=== PATIENT | female | born 1990 | race Caucasian/White ===

== ENCOUNTER 2018-05-26 07:24 | Inpatient (IN) | payer BC ==
[2018-05-26 07:58] LABS: APPEARANCE,URINE CLOUDY; BILIRUBIN,URINE NEGATIVE (NEGATIVE); GLUCOSE, URINE NEGATIVE (NEGATIVE); KETONES,URINE NEGATIVE (NEGATIVE); LEUKOCYTE ESTERASE,URINE LARGE (NEGATIVE); NITRITE,URINE NEGATIVE (NEGATIVE); PROTEIN,URINE NEGATIVE (NEGATIVE); URINE SPECIFIC GRAVITY 1.011; UROBILINOGEN,URINE NEGATIVE mg/dL (<2.0)
[2018-05-26 07:59] LABS: COLOR,URINE YELLOW
[2018-05-26 08:19] LABS: URINE AMPHETAMINES SCREEN NEGATIVE; URINE BARBITURATES SCREEN NEGATIVE; URINE BENZODIAZEPINES SCREEN NEGATIVE; URINE COCAINE SCREEN NEGATIVE; URINE MARIJUANA (THC) SCREEN NEGATIVE; URINE METHADONE SCREEN NEGATIVE; URINE PHENCYCLIDINE SCREEN NEGATIVE
[2018-05-26] MEDS ORDERED: RINGERS SOLUTION,LACTATED 1,000 ML IV ONE (10:15)
--- NOTE | 2018-05-26 10:34 | Admission Physical ---
Datetime Report Generated by CPN: 05/26/2018 10:33 CURRENT ADMISSION Chief Complaint: Uterine Contractions Indication for Induction: Not Applicable Admit Impression : Postterm, Intrauterine Admit Plan: Admit to Unit; Initiate Labor Protocol ALLERGIES Medication Allergies: No Medication Allergies: No Known Allergies (05/26/2018) Latex: No Latex Allergies OBSTETRICAL HISTORY EDC: 05/23/2018 00:00 : 2 Para: 0 Livin Gestational Diabetes: No Rh Sensitization: No Incompetent Cervix: No NICHOLAS: No Infertility: No ART Treatment: No Uterine Anomaly: No IUGR: No Hx Previous C/S: No Macrosomia: No Hx Loss/Stillborn: No PIH: No Hx : No Placenta Previa/Abruption: No Depression/PP Depression: No PTL/PROM: No Post Hemorrhage: No Current Procedures: Ultrasound; NST Obstetrical History Comments: G1: EAB G2: current SEE RECORDS Alcohol: No Marijuana : No Cocaine: No Other Illicit Drugs: No Cigarettes: Never Smoker. [id number] MEDICAL HISTORY Diabetes: No Blood Transfusion: No Pulmonary Disease (Asthma, TB): No Breast Disease: No Hypertension: No Cooker Casing Surgery: No Heart Disease: No Hosp/Surgery: No Autoimmune Disorder: No Anesthetic Complications: No Kidney Disease: No Abnormal Pap Smear: No Neuro/Epilepsy: No Psychiatric Disorders: No Other Medical Diseases: No Hepatitis/Liver Disease: No Significant Family History: No Varicosities/Phlebitis: No Trauma/Violence : No Thyroid Dysfunction: No PHYSICAL EXAM General: Normal HEENT: Deferred Neurologic: Normal Thyroid: Deferred Heart: Normal Lungs: Normal Breast: Deferred Back: Normal Abdomen: Normal Genitourinary Exam: Normal Extremities: Normal DTRs: Normal Pelvic Type: Adequate Vital Signs: Reviewed; Within Normal Limits VAGINAL EXAM Dilatation: 6 Effacement: 100 Station: -1 Contraction Comments: 3-4.5 MEMBRANES Membranes: Intact FETUS A EGA: 40.3 Monitoring: External US FHR- Baseline: 125 Variability: Moderate 6-25bpm Accelerations: 15X15 Decelerations: None FHR Category: Category I Presentation: Vertex Admit Comment: 27yo at 40w3d into L_D this am with contractions that started at 0245am and cervical change after walking x1hr. Denies LOF or other concerns. A pos, RI, GBS neg with not significant medical or obstetrical hx except for EAB with first . Pt. desires pain medication at this time and would like epidural at some point. Anticipate delivery. PLANS FOR LABOR AND DELIVERY Pain Management: Epidural Feeding Preference: Breast Benefit of Breast Feed Discussed: Yes Circumcision: Yes INFORMED CONSENT Assignment: Ruslan Hurley MD Signature: with User ID: [email or web address] : with User ID: [email or web address]
[2018-05-26] MEDS ORDERED: MISOPROSTOL 0.2 MG TABLET ONE (10:50)
[2018-05-26] MEDS ORDERED: LIDOCAINE 1% INJ-PF (10 MG/ML) 30 ML SDV ONE (10:51)
[2018-05-26] MEDS ORDERED: EPHEDRINE SULFATE INJ 50 MG/1 ML AMPULE ONE (10:51)
[2018-05-26] MEDS ORDERED: OXYTOCIN/NORMAL SALINE 20 UNIT/1,000 ML RTUINJ ONE (10:51)
[2018-05-26] MEDS ORDERED: FENTANYL/BUPIVACAINE/NS/PF 300 MCG/150 ML RTUINJ EPI ONE (10:51)
[2018-05-26] MEDS ORDERED: BUPIVACAINE HCL 0.25 % INJ/PF (2.5 MG/1 ML) 30 ML VIAL ONE (10:52)
[2018-05-26 11:05] LABS: ABSOLUTE LYMPHOCYTES (AUTO) 1.2 10^3/uL (0.5-4.7); ABSOLUTE MONOCYTES (AUTO) 0.3 10^3/uL (0.1-1.4); ABSOLUTE NEUT (AUTO) 10.3 10^3/uL (1.7-8.2); BASOPHILS % (AUTO) 0.3 % (0-2); EOSINOPHILS % (AUTO) 0.1 % (0-6); HEMATOCRIT 36.7 % (36.0-47.0); HEMOGLOBIN 12.6 g/dL (12.0-15.5); LYMPHOCYTES % (AUTO) 10.2 % (13-45); MEAN CORPUSCULAR HEMOGLOBIN 31.8 pg (27.0-33.4); MEAN CORPUSCULAR HGB CONC 34.5 g/dL (32.0-36.0); MEAN CORPUSCULAR VOLUME 92 fl (80-97); MONOCYTES % (AUTO) 2.7 % (3-13); PLATELET COUNT 215 10^3/uL (150-450); RED BLOOD COUNT 3.98 10^6/uL (3.72-5.28); RED CELL DISTRIBUTION WIDTH 12.5 % (11.5-14.0); SEGMENTED NEUTROPHILS % (AUTO) 86.7 % (42-78); TOTAL CELLS COUNTED % (AUTO) 100 %; WHITE BLOOD COUNT 11.9 10^3/uL (4.0-10.5)
--- NOTE | 2018-05-26 11:31 | L&D Progress Notes ---
PROGRESS NOTES Datetime Report Generated by CPN: 05/26/2018 11:30 PROGRESS NOTE Impression: Normal Progression of Labor Procedures: Sterile Vag Exam Plan: Continue Present Management Informed Consent Obtained: Vaginal Delivery; Risks, Benefits and Alternatives Discussed Vital Signs : Reviewed; Within Normal Limits Comment: S: pt. with urge to push, desires epidural O: vss, cervix as stated. contractions q3-4min, Cat I tracing A: IUP @ 40w3d in labor, stable P: call placed to anesthesia for epidural placement, anticipate vaginal delivery VAGINAL EXAM Dilatation: 6 Effacement: 100 Station: -1 Contractions: 3-4.5 MEMBRANES Membranes: Intact FETUS A Monitoring: External US FHR Category: Category I Presentation: Vertex SIGNATURE SIGNATURE: [id number] SIGNATURE: [id number] Assignment: Ruslan Hurley MD Signature: with User ID: [email or web address] : with User ID: [email or web address]
[2018-05-26] MEDS ORDERED: OXYTOCIN/NORMAL SALINE 20 UNIT/1,000 ML RTUINJ IV PRN ×2 (14:02→17:17)
--- NOTE | 2018-05-26 15:37 | L&D Progress Notes ---
PROGRESS NOTES Datetime Report Generated by CPN: 05/26/2018 15:36 PROGRESS NOTE Impression: Normal Progression of Labor Procedures: Artificial ROM; Sterile Vag Exam Plan: Continue Present Management Informed Consent Obtained: Vaginal Delivery; Risks, Benefits and Alternatives Discussed Vital Signs : Reviewed; Within Normal Limits Comment: S: pt. reporting increased pressure with contractions O:VSS, pit @ 2mu/min, cervix as stated A: IUP @ 40w3d in labor-stable, AROM-small amount of clear fluid P: Continue IOL and position changes. MEMBRANES Membranes: Ruptured Amniotic Fluid Color: Clear FETUS A Monitoring: External US Variability: Moderate 6-25bpm Accelerations: 15X15 Decelerations: Late FHR Comments: occasional late resolved with position change FETUS C SIGNATURE: [id number] Assignment: Ruslan Hurley MD Signature: with User ID: [email or web address] : with User ID: [email or web address]
[2018-05-26] MEDS ORDERED: MEASLES,MUMPS&RUBELLA VACC/PF 0.5 ML VIAL SUBCUT PRN (17:17)
[2018-05-26] MEDS ORDERED: ZOLPIDEM TARTRATE 5 MG TABLET PO PRN (17:17)
[2018-05-26] MEDS ORDERED: PSEUDOEPHEDRINE HCL 30 MG TABLET PO PRN (17:17)
[2018-05-26] MEDS ORDERED: ACETAMINOPHEN 650 MG SUPP.RECT PR PRN (17:17)
[2018-05-26] MEDS ORDERED: ACETAMINOPHEN WITH CODEINE #3 TABLET PO PRN (17:17)
[2018-05-26] MEDS ORDERED: PROMETHAZINE HCL INJ 25 MG/1 ML VIAL IV PRN (17:17)
[2018-05-26] MEDS ORDERED: NA PHOS,M-B/NA PHOS,DI-BA (ADULT) 133 ML ENEMA PR PRN (17:17)
[2018-05-26] MEDS ORDERED: GLYCERIN/WITCH HAZEL LEAF 1 EACH MED..PAD TP PRN (17:17)
[2018-05-26] MEDS ORDERED: MAGNESIUM HYDROXIDE SUSP 30 ML UDCUP PO PRN (17:17)
[2018-05-26] MEDS ORDERED: DIPH/PERTUSS(ACELL)/TETANUS VAC/PF 0.5 ML SYR (>=10YO) IM PRN (17:17)
[2018-05-26] MEDS ORDERED: DIPHENHYDRAMINE HCL 25 MG CAPSULE PO PRN (17:17)
[2018-05-26] MEDS ORDERED: DIBUCAINE 1% OINTMENT 28 GM TP PRN (17:17)
[2018-05-26] MEDS ORDERED: BENZOCAINE/MENTHOL AEROSOL SPRAY 56 ML TOP PRN (17:17)
[2018-05-26] MEDS ORDERED: PROMETHAZINE HCL 25 MG SUPP.RECT PR PRN (17:17)
[2018-05-26] MEDS ORDERED: PROMETHAZINE HCL 25 MG TABLET PO PRN (17:17)
--- NOTE | 2018-05-26 17:17 | PDOC DELIVERY SUMMARY ---
Delivery Summary - Maternal Ruptured Membranes: AROM Fluids: Clear - Delivery Labor: Augmentation Presentation: Vertex Uterine Contraction Monitoring: External Support Person Present: Yes Placenta: Within Normal Limits Nuchal Cord: No - Medications Type of Anesthesia:: Epidural
--- NOTE | 2018-05-26 19:46 | Delivery Summary ---
Del Sum A-C Datetime Report Generated by CPN: 05/26/2018 19:46 DELIVERY PERSONNEL DELIVERY PERSONNEL: [id number] Delivery Doctor:: Ruslan Hurley MD Labor and Delivery Nurse:: Selma Sorenson RNmolder foam rubber Nurse:: Isha Jeffers RN Nursery Nurse:: RADHA Harper/CODING TEAM LEAD: Valentino Hodge ST MATERNAL INFORMATION Delivery Anesthesia: Epidural Medications After Delivery: Pitocin Bolus-Please Comment Meds After Delivery Comment: 20 units pitocin bolus Maternal Complications: None LABOR SUMMARY EDC: 05/23/2018 00:00 No. Babies in Womb: 1 Attempted: No Labor Anesthesia: Epidural LABOR INFORMATION Reason for Induction: Not Applicable Onset of Labor: 05/26/2018 13:44 Complete Dilatation: 05/26/2018 16:37 Oxytocin: Augmentation Group B Beta Strep: neg Antibiotics # of Doses: 0 Antibiotics Time of Last Dose: N/A Name of Antibiotic Given: N/A Steroids Given: None Reason Steroids Not Administered: Not Applicable MEMBRANES Membranes Rupture Method: Artificial Rupture of Membranes: 05/26/2018 15:23 Length of Rupture (hr): 1.70 Amniotic Fluid Color: Clear Amniotic Fluid Amount: Small Amniotic Fluid Odor: Normal STAGES OF LABOR Stage 1 hr: 2 Stage 1 min: 53 Stage 2 hr: 0 Stage 2 min: 28 Stage 3 hr: 0 Stage 3 min: 3 Total Time in Labor hr: 3 Total Time in Labor min: 24 VAGINAL DELIVERY Episiotomy: None Laceration #1: Vaginal Other Laceration: vaginal skid juancho Laceration Repair: No Sponge Count Correct: N/A Sharps Count Correct: N/A CSECTION DELIVERY Primary Indication: N/A Secondary Indication: N/A CSection Incidence: N/A Labor: N/A Elective: N/A CSection Incision: N/A BABY A INFORMATION Infant Delivery Date/Time: 05/26/2018 17:05 Method of Delivery: Vaginal Born in Route : No : N/A Forceps: N/A Vacuum Extraction: N/A Shoulder Dystocia : No PRESENTATION/POSITION BABY A Presentation: Cephalic Cephalic Presentation: Vertex Vertex Position: Right Occipital Anterior Breech Presentation: N/A PLACENTA INFORMATION BABY A Placenta Delivery Time : 05/26/2018 17:08 Placenta Method of Delivery: Spontaneous Placenta Status: Delivered SCORES BABY A Heart Rate 1 min: >100 bpm Resp Effort 1 min: Good Cry Reflex Irritability 1 min: Cough or Sneeze or Pulls Away Muscle Tone 1 min: Active Motion Color 1 min: Blue/Pale Resuscitation Effort 1 min: Tactile Stimulation SCORE 1 MIN: 8 Heart Rate 5 min: >100 bpm Resp Effort 5 min: Good Cry Reflex Irritability 5 min: Cough or Sneeze or Pulls Away Muscle Tone 5 min: Active Motion Color 5 min: Body [place], Extremities Blue Resuscitation Effort 5 min: Tactile Stimulation SCORE 5 MIN: 9 INFANT INFORMATION BABY A Gestational Age at Delivery: 40.3 Gestational Status: Full Term- 39- 40.6 Weeks Infant Outcome : Liveborn Infant Condition : Stable Sex: Male IDENTIFICATION BABY A Infant Verification Date/Time: 05/26/2018 17:39 ID Band Number: [id number] Mother's Name Verified: Yes RN Verifying : Valentino Jeffers, RN, D. [place], [place] WEIGHT/LENGTH BABY A Infant Birthweight (gm): 3140 Weight (lb): 6 Infant Weight (oz): 15 Infant Length (in): 20.00 Infant Length (cm): 50.80 CORD INFORMATION BABY A No. Cord Vessels: 3 Nuchal Cord : N/A Nuchal Cord- Other: compound left hand Cord Blood Taken: Yes-For Storage (Mom's Blood type +) Infant Suction: None ASSESSMENT BABY A Infant Complications: None Physical Findings at Delivery: Within Normal Limits Respirations: Appears Normal Skin to Skin: Yes Water Treatment Specialist/ALS Called : No Care By: Eva Fragoso RN Transferred To: Remains with Mother BABY B INFORMATION : N/A SIGNATURES Signature: with User ID: [email or web address]
--- NOTE | 2018-05-26 19:49 | Warning Signs in Babies ---
VOD Warning Signs Datetime Report Generated by [facility]: 05/26/2018 19:49 VOD#608 -Warning Signs in Babies: Needs to be viewed. (05/26/2018 08:53:Radha Heller RN)
[2018-05-26] MEDS: FAMOTIDINE 20 MG TABLET PO SCH (22:00)
[2018-05-26] MEDS: IBUPROFEN 800 MG TABLET PO SCH (22:00)
[2018-05-27] MEDS: DOCUSATE SODIUM 100 MG CAPSULE PO SCH ×3 (02:30→17:09)
[2018-05-27] MEDS: FERROUS SULFATE 325 MG TABLET PO SCH ×3 (02:30→17:09)
[2018-05-27] MEDS: IBUPROFEN 800 MG TABLET PO SCH ×3 (07:01→21:36)
[2018-05-27 08:26] LABS: HEMATOCRIT 31.4 % (36.0-47.0); HEMOGLOBIN 10.8 g/dL (12.0-15.5); MEAN CORPUSCULAR HEMOGLOBIN 32.1 pg (27.0-33.4); MEAN CORPUSCULAR HGB CONC 34.4 g/dL (32.0-36.0); MEAN CORPUSCULAR VOLUME 93 fl (80-97); PLATELET COUNT 168 10^3/uL (150-450); RED BLOOD COUNT 3.37 10^6/uL (3.72-5.28); RED CELL DISTRIBUTION WIDTH 12.7 % (11.5-14.0); WHITE BLOOD COUNT 11.1 10^3/uL (4.0-10.5)
--- NOTE | 2018-05-27 09:30 | PDOC PROGRESS REPORT ---
Subjective-OB Progress Note for:: 05/27/18 Subjective: reports bleeding slowing, tolerating diet, pain controlled with current meds. Physical Exam (OB) Vital Signs: Temp Pulse Resp BP Pulse Ox 97.4 F 71 22 H 108/67 100 05/27/18 07:42 05/27/18 07:42 05/27/18 07:42 05/27/18 07:42 05/27/18 07:42 Intake & Output 05/26/18 05/27/18 05/28/18 06:59 06:59 06:59 Weight 82.6 kg - Abdomen Description: Tender, Soft Hernia Present: No Fundal Description: Firm Fundal Height: u/u - u/2 - Extremities Lower extremities: Torrey's sign - neg Calf: Normal, Nontender Objective-Diagnostic Laboratory: 05/27/18 07:42 05/26/18 05/26/18 05/27/18 10:25 10:25 07:42 WBC 11.9 H 11.1 H RBC 3.98 3.37 L Hgb 12.6 10.8 L Hct 36.7 31.4 L MCV 92 93 MCH 31.8 32.1 MCHC 34.5 34.4 RDW 12.5 12.7 Plt Count 215 168 Seg Neutrophils % 86.7 H Lymphocytes % 10.2 L Monocytes % 2.7 L Eosinophils % 0.1 Basophils % 0.3 Absolute Neutrophils 10.3 H Absolute Lymphocytes 1.2 Absolute Monocytes 0.3 Absolute Eosinophils 0.0 Absolute Basophils 0.0 Blood Type A POSITIVE Antibody Screen NEGATIVE Assessment and Plan(PN) - Assessment and Plan (1) Normal vaginal delivery Is this a current diagnosis for this admission?: Yes - Time Spent with Patient Time with patient: Less than 15 minutes Medications reviewed and adjusted accordingly: Yes - Disposition Anticipated Discharge: Home Within: within 24 hours
[2018-05-27] MEDS ORDERED: PRENATAL VITAMIN W DHA CAPSULE PO SCH (10:00)
[2018-05-27] MEDS: FAMOTIDINE 20 MG TABLET PO SCH ×2 (10:42→21:36)
[2018-05-27] MEDS: SENNOSIDES/DOCUSATE 8.6-50 MG 1 EACH TABLET PO SCH (10:43)
[2018-05-27] MEDS: PRENATAL VITAMIN W DHA CAPSULE PO SCH (10:47)
[2018-05-28] MEDS: IBUPROFEN 800 MG TABLET PO SCH (05:34)
[2018-05-28 08:29] VITALS: BP 106/57
[2018-05-28] MEDS: FERROUS SULFATE 325 MG TABLET PO SCH (09:37)
[2018-05-28] MEDS: PRENATAL VITAMIN W DHA CAPSULE PO SCH (09:37)
[2018-05-28] MEDS: SENNOSIDES/DOCUSATE 8.6-50 MG 1 EACH TABLET PO SCH (09:37)
[2018-05-28] MEDS: FAMOTIDINE 20 MG TABLET PO SCH (09:37)
[2018-05-28] MEDS: DOCUSATE SODIUM 100 MG CAPSULE PO SCH (09:37)
--- NOTE | 2018-05-28 10:00 | PDOC PROGRESS REPORT ---
Subjective-OB Progress Note for:: 05/28/18 Subjective: Doing well, sleepy, staying awake to watch baby, concerned about SIDS, eating, voiding, hsb at BS, good family support Physical Exam (OB) Vital Signs: Temp Pulse Resp BP Pulse Ox 98.4 F 74 15 106/57 L 100 05/28/18 07:47 05/28/18 07:47 05/28/18 07:47 05/28/18 07:47 05/28/18 07:47 Intake & Output 05/27/18 05/28/18 05/29/18 06:59 06:59 06:59 Weight 82.6 kg - PIH/Pre-Eclampsia DTR's: 1 + Clonus: Negative Headache: Absent Epigastric Pain: No Visual Changes: No - Lochia Lochia Amount: Small 10-25 ml Lochia Color: Rubra/Red - Abdomen Description: Soft, Round Hernia Present: No Fundal Description: Firm Fundal Height: u/u - u/2 Objective-Diagnostic Laboratory: 05/27/18 07:42 Assessment and Plan(PN) - Assessment and Plan (1) Normal vaginal delivery Is this a current diagnosis for this admission?: Yes - Time Spent with Patient Time with patient: Less than 15 minutes Medications reviewed and adjusted accordingly: Yes - Disposition Anticipated Discharge: Home Within: Other - home today
--- NOTE | 2018-05-28 10:06 | PDOC DISCHARGE SUMMARY ---
Final Diagnosis Discharge Date: 05/28/18 - Final Diagnosis (1) Normal vaginal delivery Is this a current diagnosis for this admission?: Yes Discharge Data - Discharge Medication Prescriptions: Ibuprofen [Motrin 800 mg Tablet] 800 mg PO Q8 #30 tablet Vit/Dha [ Multi + Dha Capsule] 1 cap PO DAILY #30 capsule Home Medications: Acetaminophen [Tylenol] 3 cap PO Q6H 05/26/18 Ibuprofen [Motrin 800 mg Tablet] 800 mg PO Q8 #30 tablet 05/28/18 Vit/Dha [ Multi + Dha Capsule] 1 cap PO DAILY #30 capsule 05/28 Gestational Age: 40.3 Reason(s) for Admission: Onset of Labor - augmentation, epidural Procedures: NST, Ultrasound Intrapartum Procedure(s): Spontaneous Vaginal Delivery Complication(s): Laceration-Vaginal Laceration-Degree: 1st - Data Baby 1 Male at 1 minute: 8 at 5 minutes: 9 Weight: 3.147 kg Home with Mother: Yes Complications: No - Diagnosis Test Laboratory: Temp Pulse Resp BP Pulse Ox 98.4 F 74 15 106/57 L 100 05/28/18 07:47 05/28/18 07:47 05/28/18 07:47 05/28/18 07:47 05/28/18 07:47 05/26/18 05/26/18 05/27/18 07:34 10:25 07:42 RBC 3.98 3.37 L Hgb 12.6 10.8 L Hct 36.7 31.4 L Urine Opiates Screen NEGATIVE - Discharge information/Instructions Discharge Activity: Activity As Tolerated, No Lifting Over 10 Pounds, No Lifting /Push/Pulling, Pelvic Rest Discharge Diet: As Tolerated, Regular Disposition: HOME, SELF-CARE Follow up with: [facility] in: 4, Weeks
== END 2018-05-28 16:43 | disposition home or self-care (01) | DRG 775 ==
LOC: LC 07:24 → LR 09:53 → 2S 21:16
PROVIDERS: ADMIT Obstetrics & Gynecology Gynecology; ATTEND Obstetrics & Gynecology Gynecology
PROC: 10E0XZZ Delivery of Products of Conception, External Approach (ICD-10-PCS; principal; 2018-05-26)
DX: O48.0 Post-term pregnancy (principal); O32.2XX0 Maternal care for transverse and oblique lie, not applicable or unspecified; Z3A.40 40 weeks gestation of pregnancy; Z37.0 Single live birth
CPT/HCPCS: 36415; 80307; 81005; 85025; 85027; 86592; 86850; 86900; 86901; 94760; J2590; J3010; J3490